=== PATIENT | female | born 1960 | race Caucasian/White ===

== ENCOUNTER → 2016-04-20 | Outpatient (CLI) | payer OTHER ==
[~2016-04-20] MED LIST: TEMA30CA4 PO; TRAM-10 PO; ZYRUNK
== END | disposition home or self-care (01) ==
LOC: C.PAPS 10:06
PROVIDERS: ATTEND Obstetrics & Gynecology
DX: Z12.4 Encounter for screening for malignant neoplasm of cervix (principal)

== ENCOUNTER → 2016-08-09 | Outpatient (CLI) | payer OTHER | END | disposition home or self-care (01) | LOC: C.MAMM 11:33 | PROVIDERS: ATTEND Family Medicine | DX: M81.0 Age-related osteoporosis without current pathological fracture (principal) ==

== ENCOUNTER → 2016-08-24 | Outpatient (CLI) | payer OTHER ==
--- NOTE | 2016-08-24 14:10 | MAMMOGRAPHY REPORT ---
BILATERAL DIGITAL SCREENING MAMMOGRAM TOMOSYNTHESIS WITH CAD: 08/24/2016 CLINICAL HISTORY: Routine screening. Patient has no complaints. TECHNIQUE: Breast tomosynthesis in addition to standard 2D mammography was performed. Current study was also evaluated with a Computer Aided Detection (CAD) system. COMPARISON: Comparison is made to exams dated: 08/19/2015 mammogram, 02/18/2014 mammogram, 12/11/2012 mammogram, 11/23/2011 mammogram, 09/09/2010 mammogram - [facility], and 04/10/2006. BREAST COMPOSITION: The tissue of both breasts is heterogeneously dense, which may obscure small ma sses. FINDINGS: A 4.5 m circumscribed oval mass in the far superior right breast on the MLO view is unchan ged in size dating back to at least 09/09/2010, therefore likely benign. No new suspicious mass, ar chitectural distortion or cluster of microcalcifications is seen. IMPRESSION: ACR BI-RADS CATEGORY 1: NEGATIVE There is no mammographic evidence of malignancy. A 1 year screening mammogram is recommended. The p atient will receive written notification of the results. Approximately 10% of breast cancers are not detected with mammography. A negative mammographic repor t should not delay biopsy if a clinically suggestive mass is present. Graciela Stroud M.D. ay/:08/24/2016 12:17:56 Development Technical Lead: Liliana PLUNKETT)(Malcolm), [facility] letter sent: Normal 1/2 BI-RADS Code: ACR BI-RADS Category 1: Negative
== END | disposition home or self-care (01) ==
LOC: C.MAMM 10:26
PROVIDERS: ATTEND Nurse Practitioner Adult Health
DX: Z12.31 Encounter for screening mammogram for malignant neoplasm of breast (principal)

== ENCOUNTER → 2016-08-26 | Outpatient (CLI) | payer OTHER ==
--- NOTE | 2016-08-26 11:23 | DIAGNOSTIC IMAGING REPORT ---
ABDOMINAL WALL ULTRASOUND CLINICAL HISTORY: Left lower quadrant abdominal mass. COMPARISON STUDY: No previous studies for comparison. FINDINGS: Targeted sonography of the left anterior abdominal wall at site of palpable abnormality revealed a possible 0.9 x 0.6 x 0.4 cm subcutaneous abnormality. This is slightly echogenic when compared to the adjacent subcutaneous fat. IMPRESSION: 9 mm subtle subcutaneous echogenic lesion within the subcutaneous tissues at site of palpable abnormality. The sonographic appearance is nonspecific although this may reflect a lipoma. Clinical follow up to ensure stability is recommended. If interval enlargement, repeat ultrasound is recommended. Electronically signed by: Robinson Mon M.D. 08/26/2016 11:22 AM Dictated Date/Time: 08/26/2016 11:20 AM
== END | disposition home or self-care (01) ==
LOC: C.ULTR 10:46
PROVIDERS: ATTEND Nurse Practitioner Adult Health
DX: R19.04 Left lower quadrant abdominal swelling, mass and lump (principal)

== ENCOUNTER → 2016-10-11 | Outpatient (CLI) | payer OTHER ==
[2016-10-11 13:58] LABS: CALCIUM 10.2 mg/dl (8.5-10.1); CREATININE 0.76 mg/dl (0.60-1.20)
[2016-10-11 15:22] LABS: CALCIUM URINE 6.1 mg/dl
[2016-10-14 11:34] LABS: ALBUMIN 4.6 G/DL (3.8-4.8); GAMMA GLOBULIN 0.9 G/DL (0.8-1.7); TOTAL PROTEIN 7.1 G/DL (6.2-8.3)
== END | disposition home or self-care (01) ==
LOC: C.LAB1850 12:24
PROVIDERS: ATTEND Internal Medicine Rheumatology
DX: M81.0 Age-related osteoporosis without current pathological fracture (principal); E55.9 Vitamin D deficiency, unspecified; Z11.59 Encounter for screening for other viral diseases

== ENCOUNTER → 2016-12-09 | Outpatient (CLI) | payer OTHER ==
[2016-12-09 10:10] LABS: HEMATOCRIT 41.3 % (37-47); MEAN CELL VOLUME 94.9 fL (80-100); MEAN CORPUSCULAR HEMOGLOBIN 30.1 pg (25-34); MEAN CORPUSCULAR HGB CONC 31.7 g/dl (32-36); MEAN PLATELET VOLUME 11.1 fL (7.4-10.4); PLATELET COUNT 282 K/uL (130-400); RED BLOOD COUNT 4.35 M/uL (4.2-5.4); WHITE BLOOD COUNT 5.28 K/uL (4.8-10.8)
[2016-12-09 10:42] LABS: BLOOD UREA NITROGEN 10 mg/dl (7-18); BUN/CREATININE RATIO 12.9 (10-20); CALCIUM 9.7 mg/dl (8.5-10.1); CARBON DIOXIDE 29 mmol/L (21-32); CHLORIDE 105 mmol/L (98-107); CREATININE 0.81 mg/dl (0.60-1.20); GLUCOSE 92 mg/dl (70-99); POTASSIUM 3.8 mmol/L (3.5-5.1); SODIUM 139 mmol/L (136-145)
[2016-12-09 10:46] LABS: CHOLESTEROL 201 mg/dl (0-200); CHOLESTEROL/HDL RATIO 1.9; HDL CHOLESTEROL 105 mg/dl; LDL CHOLESTEROL CALCULATED 86 mg/dl; TRIGLYCERIDES 52 mg/dl (0-150); VERY LOW DENSITY LIPOPROT CALC 10 mg/dl
[2016-12-09 14:19] LABS: URINE APPEARANCE CLEAR (CLEAR); URINE BILIRUBIN NEG (NEG); URINE COLOR YELLOW; URINE NITRITE NEG (NEG); URINE PH 5.5 (4.5-7.5); URINE SPECIFIC GRAVITY 1.016 (1.000-1.030); UROBILINOGEN NEG (NEG)
[2016-12-09 14:22] LABS: MANUAL MICROSCOPIC REQUIRED? NO; REVIEW REQ? NO
== END | disposition home or self-care (01) ==
LOC: C.LAB1850 09:21
PROVIDERS: ATTEND Family Medicine
DX: Z00.00 Encounter for general adult medical examination without abnormal findings (principal); R39.9 Unspecified symptoms and signs involving the genitourinary system; M81.0 Age-related osteoporosis without current pathological fracture; E55.9 Vitamin D deficiency, unspecified; Z13.220 Encounter for screening for lipoid disorders; M79.673 Pain in unspecified foot

== ENCOUNTER → 2016-12-19 | Outpatient (CLI) | payer OTHER ==
--- NOTE | 2016-12-19 16:31 | DIAGNOSTIC IMAGING REPORT ---
ABDOMEN FOR HERNIA CLINICAL HISTORY: R19.04 Left lower quadrant abdominal or pelvic swelling, mass, o pain. Hernia. TECHNIQUE: Ultrasound COMPARISON STUDY: 08/26/2016 FINDINGS: Unchanging lipoma the subcutaneous tissues at the site of clinically palpable nodularity. This is unchanged compared to the prior study. IMPRESSION: Unchanging lipoma subcutaneous tissues left lower abdominal regions The above report was generated using voice recognition software. It may contain grammatical, syntax or spelling errors. Electronically signed by: Rivera Tolliver M.D. 12/19/2016 4:29 PM Dictated Date/Time: 12/19/2016 4:26 PM
== END | disposition home or self-care (01) ==
LOC: C.ULTR 15:34
PROVIDERS: ATTEND Nurse Practitioner Adult Health
DX: R19.04 Left lower quadrant abdominal swelling, mass and lump (principal)

== ENCOUNTER → 2017-07-22 | Outpatient (CLI) | payer OTHER ==
[~2017-07-22] MED LIST changes: +ALPR0.25 PO; +AMOX875T PO; +CALC500C3 PO; +CHOL1TAB42 PO; +CYCL5TAB PO; +GABA-113 PO; +GABA100C13 PO; +MISCCAP52 PO; +MISCCAP80 PO; +TERI600S SQ; +VALA1TAB31 PO; +ZINC1TAB PO
[2017-07-22 13:12] LABS: BASO % 0.6 %; BASO ABS # 0.03 K/uL (0-0.2); EOS % 0.6 %; EOS ABS # 0.03 K/uL (0-0.5); HEMATOCRIT 42.5 % (37-47); HEMOGLOBIN 14.3 g/dL (12.0-16.0); IG# 0.01 K/uL (0.00-0.02); LYMPH ABS # 1.55 K/uL (1.2-3.4); MEAN CORPUSCULAR HEMOGLOBIN 31.6 pg (25-34); MEAN CORPUSCULAR HGB CONC 33.6 g/dl (32-36); MONO ABS # 0.65 K/uL (0.11-0.59); NEUT % 54.6 %; NEUT ABS # 2.73 K/uL (1.4-6.5); PLATELET COUNT 307 K/uL (130-400); RED CELL DISTRIBUTION WIDTH CV 15.7 % (11.5-14.5); RED CELL DISTRIBUTION WIDTH SD 54.2 fL (36.4-46.3)
[2017-07-22 13:32] LABS: ALBUMIN 4.6 gm/dl (3.4-5.0); ALT/SGPT 31 U/L (12-78); AST/SGOT 21 U/L (15-37); BLOOD UREA NITROGEN 14 mg/dl (7-18); CALCIUM 10.1 mg/dl (8.5-10.1); CARBON DIOXIDE 27 mmol/L (21-32); CREATININE 0.85 mg/dl (0.60-1.20); GLUCOSE 86 mg/dl (70-99); POTASSIUM 3.7 mmol/L (3.5-5.1); SODIUM 138 mmol/L (136-145)
[2017-07-22 13:35] LABS: ALKALINE PHOSPHATASE 104 U/L (45-117); TOTAL PROTEIN 8.8 gm/dl (6.4-8.2)
== END | disposition home or self-care (01) ==
LOC: C.LAB1850 12:19
PROVIDERS: ATTEND Internal Medicine
DX: M54.2 Cervicalgia (principal); R51 Headache

== ENCOUNTER 2017-07-25 17:17 | Emergency (ER) | payer OTHER ==
[~2017-07-25] VITALS: Ht 172.7 cm; Wt 49.0 kg
[~2017-07-25 17:17] MED LIST changes: -ALPR0.25 PO; -AMOX875T PO; -CALC500C3 PO; -CHOL1TAB42 PO; -CYCL5TAB PO; -GABA-113 PO; -GABA100C13 PO; -MISCCAP52 PO; -MISCCAP80 PO; -TEMA30CA4 PO; -TERI600S SQ; -VALA1TAB31 PO; -ZINC1TAB PO
[2017-07-25 17:23] VITALS: TEMP 36.9; Ht 172.7 cm; Wt 49.0 kg
--- NOTE | 2017-07-25 18:18 | EMERGENCY ROOM VISIT NOTE ---
History Report prepared by Bimal: Miguel Pimentel Under the Supervision of: Dr. Lisha Jones D.O. First contact with patient: 17:46 Chief Complaint: HEADACHE Stated Complaint: HEADACHE, NECK PAIN History of Present Illness The patient is a 57 year old female who presents to the Emergency Room with complaints of a worsening headache starting a week ago. The patient additionally notes that she has some neck pain, and she states that her headache is worse with light. She additionally notes that she has had headaches before, though she notes that this is worse than usual. The patient notes that she has a history of Lyme's disease in the past, and she notes that her headache feels very similar to when she had it with encephalitis. She states that [place] day, and she states that she has found ticks on her clothes before, though she has not found any tick bites. The patient notes that she went to the walk in clinic three days ago, and she was diagnosed with an ear infection, and she was put on Augmentin. She states that she never had ear pain, though it felt like she had water in her ear. The patient notes that she recently went to [place]. She notes that the only thing that would make it better was Advil. She denies any fever, chills, dizziness, light headedness, nausea, vomiting, vision problems, joint swelling, and joint pain. The patient states that she does not have a history of any sort of headache or migraines, and she denies any family history of headaches and migraines. The patient denies any new medications, and she has been taking Forteo for the past 6-8 months. She notes that she has had CT scans and MRIs in the past. Pt states she has never had IV dye but tells people she is allergic bc her mother had an allergic reaction once. Labs reviewed from outpatient showed a normal CBC, normal CMP, normal CRP and ESR, negative Lyme IgG and IgM. Source of History: patient Onset: a week ago Position: head Quality: ache Timing: worsening Modifying Factors (Worsening): other (light) Associated Symptoms: No fevers, No chills, No nausea, No vomiting Review of Systems See HPI for pertinent positives & negatives. A total of 10 systems reviewed and were otherwise negative. Past Medical & Surgical Medical Problems: (1) H/o Lyme disease Family History FHx: cancer Hypertension Social History Smoking Status: Never Smoker Marital Status: Occupation Status: employed Current/Historical Medications Scheduled Amoxicillin & Pot Clavulanate (Augmentin 875-125 mg), 1 TAB PO Q12 Calcium Carbonate (Tums), 1 TAB PO DAILY Cholecalciferol (Vitamin D), 5,000 UNITS PO DAILY Cyclobenzaprine Hcl (Flexeril), 5 MG PO TID Gabapentin (Neurontin), 600 MG PO HS Gabapentin (Neurontin), 100 MG PO BID UD Misc Natural Products (Turmeric Curcumin), 1 CAN PO DAILY Probiotic Product (Probiotic), 1 CAP PO DAILY Temazepam (Restoril), 30 MG PO HS Teriparatide (Recombinant) (Forteo), 1 DOSE SQ DAILY Zinc Gluconate (Zinc), 1 TABS PO DAILY Scheduled PRN Alprazolam (Xanax), 0.25 MG PO QID PRN for Anxiety Valacyclovir Hcl (Valtrex), 1 GM PO TID PRN for BREAKOUTS Allergies Coded Allergies: Iodinated Diagnostic Agents (Verified Allergy, Mild, UNKNOWN, 07/25/17) Sulfa Antibiotics (Verified Allergy, Unknown, ., 08/08/13) Levofloxacin (Verified Adverse Reaction, Severe, AGGITATION/NUMB FEET & HANDS,TACHYCARDIA, 07/25/17) Physical Exam Vital Signs Date Time Temp Pulse Resp B/P (MAP) Pulse Ox O2 Delivery O2 Flow Rate FiO2 07/25/17 21:22 52 16 105/72 98 07/25/17 20:34 55 16 111/66 98 Room Air 07/25/17 18:40 62 20 113/76 97 Room Air 07/25/17 17:23 36.9 70 20 118/73 97 Room Air Physical Exam GENERAL: alert, well appearing, well nourished, no distress, non-toxic EYE EXAM: normal conjunctiva, PERRL and EOM's grossly intact OROPHARYNX: no exudate, no erythema, lips, buccal mucosa, and tongue normal and mucous membranes are moist NECK: supple, no nuchal rigidity, no adenopathy, non-tender LUNGS: Clear to auscultation. Normal chest wall mechanics HEART: no murmurs, S1 normal and S2 normal ABDOMEN: abdomen soft, non-tender, normo-active bowel sounds, no masses, no rebound or guarding. BACK: Back is symmetrical on inspection and there is no deformity, no midline tenderness, no CVA tenderness. SKIN: no rashes and no bruising UPPER EXTREMITIES: upper extremities are grossly normal. LOWER EXTREMITIES: No pitting edema. NEURO EXAM: Normal sensorium, cranial nerves II-XII grossly intact, normal speech, no gross weakness of arms, no gross weakness of legs. Medical Decision & Procedures ER Provider Diagnostic Interpretation: Radiology results have been interpreted by the radiologist and reviewed by me. ANGIOGRAPHY HEAD COMBO CLINICAL HISTORY: 57 years-old Female presents with acute headache COMPARISON STUDY: None available TECHNIQUE: Unenhanced axial CT scan of the brain is performed. Subsequently, following the IV administration of 95 cc of Optiray 320, CT angiogram of the brain was performed from the skull base to the vertex. Images are reviewed in the axial, sagittal, and coronal planes. 3-D MIPS images are created and assessed. IV contrast was administered without complication. All measurements were obtained according to NASCET criteria. A dose lowering technique was utilized adhering to the principles of ALARA. CT DOSE: 632.84 mGy.cm FINDINGS: CT BRAIN: There is no acute intracranial hemorrhage, midline shift, hydrocephalus, intracranial mass, territorial ischemia or abnormal extra-axial collections. No abnormal intra-axial or extra-axial enhancement. Mastoid air cells and middle ear cavities are clear. No calvarial fracture. Minimal aerated secretions of the sphenoid sinus. Minimal left maxillary sinus disease.. CT ANGIOGRAM OF THE BRAIN: The imaged bilateral internal carotid arteries are patent. The bilateral anterior and middle cerebral arteries are also patent. The vertebrobasilar system and posterior cerebral arteries are widely patent. Right vertebral artery is dominant. The majority of the left vertebral artery terminates into the left PICA. There is no aneurysm, high-grade stenosis, or proximal branch occlusion identified. Dural sinuses are not well opacified. IMPRESSION: 1. No acute intracranial abnormality identified. 2. Unremarkable CTA of the head without aneurysm, dissection, high-grade stenosis or proximal branch occlusion. The above report was generated using voice recognition software. It may contain grammatical, syntax or spelling errors. Electronically signed by: Man Cohen M.D. 07/25/2017 8:24 PM Dictated Date/Time: 07/25/2017 8:17 PM Medications Administered Medications (Trade) Dose Ordered Sig/Don Route Start Time Stop Time Status Last Admin Dose Admin Diphenhydramine HCl (Benadryl Inj) 25 mg NOW STAT IV 07/25/17 19:34 07/25/17 19:36 DC 07/25/17 19:45 25 MG Methylprednisolone Sodium Succinate (Solu-Medrol IV) 40 mg STK-MED ONCE .ROUTE 07/25/17 19:42 07/25/17 19:43 DC 07/25/17 19:46 40 MG Acetaminophen (Tylenol Tab) 1,000 mg NOW STAT PO 07/25/17 20:43 07/25/17 20:44 DC 07/25/17 20:47 1,000 MG Cyclobenzaprine HCl (Flexeril Tab) 5 mg NOW STAT PO 07/25/17 20:57 07/25/17 20:58 DC 07/25/17 20:57 5 MG ED Course 1745: The patient was evaluated in room A4. A complete history and physical exam was performed. 1804: Review of EMR showed labs from three days ago: CBC, [employer]CH[employer]ICIAN, [employer]ER, CRP, and Lyme disease are all negative 1807: I reevaluated the patient, and she wants to talk to the case specialist before getting any imaging. 2049: Upon reevaluation, the patient is feeling better. I discussed the findings and the treatment plan with the patient and answered all of her questions. She verbalizes agreement and understanding. She was discharged home. Medical Decision Differential diagnosis: Etiologies such as migraine headache, meningitis, sinusitis, CO exposure, ICH, SAH, infection, tumor, headache, sinus thrombosis, arterial dissection, as well as others were entertained. Discussed with patient close follow-up with her family doctor and possible recheck of her Lyme's titer in several weeks and sometimes they can be falsely normal after the initial infection. Patient given additional medications to try upon arrival at home. None given here as patient was driving. Patient with a normal nonfocal neuro exam at bedside. Given chronicity of symptoms, unclear if related to other atypical headaches. I do not suspect occult meningitis/encephalitis. Discussed with her possibility of migraine versus tension headaches. Patient verbalized understanding of all this and was agreeable with plan. I did not feel patient required lumbar puncture to rule out subarachnoid hemorrhage. Patient does not have risk factors for venous sinus thrombus. Patient with no other symptoms to suggest carotid or vertebral dissection, CVA, cerebellar infarct/mass/bleed. Discussed with patient symptoms to watch and return for, she verbalized understanding was agreeable with plan. Medication Reconcilliation Current Medication List: was personally reviewed by me Blood Pressure Screening Patient's blood pressure: Normal blood pressure Impression Primary Impression: Headache Scribe Attestation The scribe's documentation has been prepared under my direction and personally reviewed by me in its entirety. I confirm that the note above accurately reflects all work, treatment, procedures, and medical decision making performed by me. Departure Information Dispostion Home / Self-Care Prescriptions Cyclobenzaprine Hcl (FLEXERIL) 5 Mg Tab 5 MG PO TID for Muscle Spasms, #10 TAB PRN Prov: Lisha Jones DO 07/25/17 Referrals Talia Bronson DO (PCP) Forms HOME CARE DOCUMENTATION FORM, IMPORTANT VISIT INFORMATION Patient Instructions My [facility] Additional Instructions Please call and follow-up with your family doctor. You may use tylenol as needed for pain. You may try to muscle relaxer. Do not take it any drive. It may make you dizzy/groggy. Please do not take it and drink alcohol. If you have any worsening headaches, develop vomiting, dizziness, vision changes, numbness/tingling, weakness, trouble walking, or any other new or concerning symptoms, please return to the emergency room. Problem Qualifiers Primary Impression: Headache Headache type: unspecified Headache chronicity pattern: acute headache Intractability: not intractable Qualified Codes: R51 - Headache
[2017-07-25] MEDS ORDERED: AMOX875T PO (19:07)
[2017-07-25] MEDS ORDERED: CALC500C3 PO (19:07)
[2017-07-25] MEDS ORDERED: CHOL1TAB42 PO (19:12)
[2017-07-25] MEDS ORDERED: TERI600S SQ (19:12)
[2017-07-25] MEDS ORDERED: GABA-113 PO (19:12)
[2017-07-25] MEDS ORDERED: ZINC1TAB PO (19:12)
[2017-07-25] MEDS ORDERED: VALA1TAB31 PO (19:12)
[2017-07-25] MEDS ORDERED: MISCCAP52 PO (19:13)
[2017-07-25] MEDS ORDERED: MISCCAP80 PO (19:13)
[2017-07-25] MEDS ORDERED: GABA100C13 PO (19:15)
[2017-07-25] MEDS ORDERED: ALPR0.25 PO (19:19)
[2017-07-25] MEDS ORDERED: DiphenhydrAMINE HCL 50 MG/ML VIAL IV STA (19:34)
[2017-07-25] MEDS ORDERED: METHYLPREDNISOLONE 125 MG VIAL IV STA (19:34)
[2017-07-25] MEDS ORDERED: OPTIRAY 320 IV PRN (20:15)
--- NOTE | 2017-07-25 20:25 | DIAGNOSTIC IMAGING REPORT ---
ANGIOGRAPHY HEAD COMBO CLINICAL HISTORY: 57 years-old Female presents with acute headache COMPARISON STUDY: None available TECHNIQUE: Unenhanced axial CT scan of the brain is performed. Subsequently, following the IV administration of 95 cc of Optiray 320, CT angiogram of the brain was performed from the skull base to the vertex. Images are reviewed in the axial, sagittal, and coronal planes. 3-D MIPS images are created and assessed. IV contrast was administered without complication. All measurements were obtained according to NASCET criteria. A dose lowering technique was utilized adhering to the principles of ALARA. CT DOSE: 632.84 mGy.cm FINDINGS: CT BRAIN: There is no acute intracranial hemorrhage, midline shift, hydrocephalus, intracranial mass, territorial ischemia or abnormal extra-axial collections. No abnormal intra-axial or extra-axial enhancement. Mastoid air cells and middle ear cavities are clear. No calvarial fracture. Minimal aerated secretions of the sphenoid sinus. Minimal left maxillary sinus disease.. CT ANGIOGRAM OF THE BRAIN: The imaged bilateral internal carotid arteries are patent. The bilateral anterior and middle cerebral arteries are also patent. The vertebrobasilar system and posterior cerebral arteries are widely patent. Right vertebral artery is dominant. The majority of the left vertebral artery terminates into the left PICA. There is no aneurysm, high-grade stenosis, or proximal branch occlusion identified. Dural sinuses are not well opacified. IMPRESSION: 1. No acute intracranial abnormality identified. 2. Unremarkable CTA of the head without aneurysm, dissection, high-grade stenosis or proximal branch occlusion. The above report was generated using voice recognition software. It may contain grammatical, syntax or spelling errors. Electronically signed by: Man Cohen M.D. 07/25/2017 8:24 PM Dictated Date/Time: 07/25/2017 8:17 PM
[2017-07-25] MEDS ORDERED: ACETAMINOPHEN 500 MG TAB PO STA (20:43)
[2017-07-25] MEDS ORDERED: CYCLOBENZAPRINE HCL 10 MG TAB PO STA (20:57)
[2017-07-25] MEDS ORDERED: CYCL5TAB PO (21:08)
[2017-07-25] MEDS ORDERED: EMPTY 8 DRAM VIAL ONE (21:14)
[2017-07-25 21:22] VITALS: BP 105/72; PULSE 52; O2SAT 98
[2017-07-25] MEDS ORDERED: TEMA30CA4 PO (22:15)
== END 2017-07-25 21:24 | disposition home or self-care (01) ==
LOC: C.EDB 17:20 → C.EDA 21:24
DX: R51 Headache (principal); Z82.49 Family history of ischemic heart disease and other diseases of the circulatory system; Z88.1 Allergy status to other antibiotic agents; Z91.041 Radiographic dye allergy status

== ENCOUNTER 2017-07-31 09:07 | Day surgery (SDC) | payer OTHER ==
[~2017-07-31] VITALS: Ht 170.2 cm; Wt 49.0 kg
[2017-07-31] VITALS (9 sets, daily range): BP systolic 96–137; BP diastolic 43–66; PULSE 64–83; TEMP 36.8–37; O2SAT 98–100; Ht 170.2 cm; Wt 49.0 kg
[~2017-07-31 09:07] MED LIST changes: +ALPR0.25 PO; +AMOX875T PO; +CALC500C3 PO; +CHOL1TAB42 PO; +CYCL5TAB PO; +GABA-113 PO; +GABA100C13 PO; +MISCCAP52 PO; +MISCCAP80 PO; +TEMA30CA4 PO; +TERI600S SQ; -TRAM-10 PO; +VALA1TAB31 PO; +ZINC1TAB PO; -ZYRUNK
[2017-07-31] MEDS ORDERED: CYCL5TAB PO (10:34)
--- NOTE | 2017-07-31 12:29 | DIAGNOSTIC IMAGING REPORT ---
FLUOROSCOPICALLY GUIDED LUMBAR PUNCTURE CLINICAL HISTORY: Headache. Change in mental status. FLUOROSCOPY TIME: 0.7 minutes. 4 fluoroscopic spot images of the lumbar spine. PROCEDURE: The procedure, risks and benefits were discussed with the patient including the risk of spinal headache, bleeding and infection. The patient agreed to the procedure and informed written consent was obtained. The procedure was performed by Dr. Thomason following a timeout. The left L4-L5 interlaminar space was targeted. Skin overlying the space was prepped and draped in the usual sterile fashion and local anesthesia was achieved with 1% lidocaine. Under intermittent fluoroscopic guidance, a 20-gauge x 3 1/2 in. Sprotte needle was inserted into the L4-L5 level. However, no cerebral spinal fluid was obtained. This was repeated at the L3-L4 level with the same result. Finally, at the L5-S1 level cerebral spinal fluid was obtained. A total of 11cc of clear, colorless cerebral spinal fluid was obtained and spread amongst 4 vials. The patient tolerated the procedure well. There were no immediate complications. The specimens were sent to the laboratory at the request of the referring physician. IMPRESSION: Successful fluoroscopic guided lumbar puncture with removal of 11 cc of clear, colorless cerebral spinal fluid. No immediate complications. Opening pressure was less than 9 cm of H2O. Electronically signed by: Sami Thomason M.D. 07/31/2017 12:27 PM Dictated Date/Time: 07/31/2017 12:25 PM
[2017-07-31] MEDS ORDERED: ACETAMINOPHEN 500 MG TAB PO PRN (12:30)
--- NOTE | 2017-07-31 12:31 | Discharge Instructions ---
Discharge Instructions Procedure Procedure Date: July 31, 2017. Reason for visit: Change Mental Status, Neck Stiffness, Headache. Discharge Discharge Date: July 31, 2017. Discharge Diagnosis: same Instructions Activity Recommendations: No limitations Return to School/Work: no limitations Recommended Home Diet: Resume Previous Diet Provider Instructions: ACTIVITY RECOMMENDATIONS: * Rest today. * Resume regular activity in one day. MEDICATIONS: * May take Tylenol or Ibuprofen as needed for pain. DIET: * Resume previous diet. SPECIAL CARE INSTRUCTIONS: Call your doctor if: * Temperature above 101 degrees F. * Pain not relieved by pain medicine ordered. * Increased drainage or redness from incision. * Notify your doctor with any questions or concerns. Call your doctor or go to the nearest Emergency Department if you experience: * Increased chest pain or shortness of breath. FOLLOW UP VISIT: Follow-up with Referring Physician as scheduled. Allergies Coded Allergies: Iodinated Diagnostic Agents (Verified Allergy, Mild, UNKNOWN, 07/31/17) Sulfa Antibiotics (Verified Allergy, Unknown, ., 07/31/17) Levofloxacin (Verified Adverse Reaction, Severe, AGGITATION/NUMB FEET & HANDS,TACHYCARDIA, 07/31/17) [place] Recommendations: Call your doctor if: * Temperature above 101 degrees * Pain not relieved by pain medicine ordered * There is increased drainage or redness from any incision * You have any unanswered questions or concerns. Your Doctors Instructions noted above were prepared by provider Sami Thomason. Patient Signature Section: Patient Instructions Signature Page Araceli Marilydolly Patient (or Guardian) Signature/Date: I have read and understand the instructions given to me by my caregivers. Caregiver/RN/Doctor Signature/Date: The above-named patient and/or guardian has received patient instructions on this date. + Original Patient Signature Page (only) stays with chart. Please make copy for patient.
[2017-07-31 12:42] LABS: CSF TOTAL PROTEIN 64.6 mg/dl (15.0-45.0)
== END 2017-07-31 16:17 | disposition home or self-care (01) ==
LOC: C.ACU 09:07
PROVIDERS: ATTEND Internal Medicine
DX: R41.82 Altered mental status, unspecified (principal); R51 Headache; M43.6 Torticollis; M81.0 Age-related osteoporosis without current pathological fracture; Z88.1 Allergy status to other antibiotic agents; Z88.6 Allergy status to analgesic agent; Z91.041 Radiographic dye allergy status

== ENCOUNTER → 2017-08-17 | Outpatient (CLI) | payer OTHER ==
[~2017-08-17] MED LIST changes: +GADAVIST IV PRN
--- NOTE | 2017-08-17 11:15 | DIAGNOSTIC IMAGING REPORT ---
BRAIN COMBO HISTORY: 57 years-old Female R41.82 Mental status [id number] CSF abnormal severe headache with CSF demonstrating elevated protein level COMPARISON: CTA had 07/25/2017 TECHNIQUE: Multiplanar multisequence MRI of the brain was obtained both with and without the use of 4.5 mL Gadavist FINDINGS: Localizer images demonstrate no gross abnormality. The midline structures including the corpus callosum, brainstem, optic chiasm, pituitary and pineal glands appear unremarkable. There is no cerebellar tonsillar herniation. There is no restricted diffusion to suggest acute or subacute infarction. No acute intracranial hemorrhage, midline shift, abnormal extra-axial collections or hydrocephalus. The study is mildly motion degraded. No significant T2/FLAIR signal abnormalities within the brain parenchyma. There is no abnormal intra-axial or extra-axial enhancement. Flow voids at the level of the skull base appear patent. Mastoid air cells and paranasal sinuses appear clear. The orbits, skull and soft tissues are within normal limits. IMPRESSION: 1. No acute intracranial abnormality. 2. No abnormal enhancement. The above report was generated using voice recognition software. It may contain grammatical, syntax or spelling errors. Electronically signed by: Man Cohen M.D. 08/17/2017 11:14 AM Dictated Date/Time: 08/17/2017 11:03 AM
== END ==
LOC: C.MRIBC 10:04
PROVIDERS: ATTEND Internal Medicine
DX: R83.9 Unspecified abnormal finding in cerebrospinal fluid (principal); R51 Headache; R41.82 Altered mental status, unspecified

== ENCOUNTER → 2017-11-02 | Outpatient (CLI) | payer OTHER ==
[~2017-11-02] MED LIST changes: +GABA-1693 PO; -GABA100C13 PO; -GADAVIST IV PRN
[2017-11-02 12:36] LABS: CREATININE 0.81 mg/dl (0.60-1.20)
== END | disposition home or self-care (01) ==
LOC: C.LAB1850 10:51
PROVIDERS: ATTEND Internal Medicine Rheumatology
DX: M81.0 Age-related osteoporosis without current pathological fracture (principal); E55.9 Vitamin D deficiency, unspecified

== ENCOUNTER 2024-10-29 19:13 | Inpatient (IN) ==
[2024-10-29 20:06] LABS: Anion Gap 9.0 (3-11); Blood Urea Nitrogen 19.0 mg/dl (6-23); Calcium 9.6 mg/dl (8.6-10.3); Carbon Dioxide 26.0 mmol/L (21-32); Chloride 101.0 mmol/L (98-107); Creatinine Clr Calc Pharmacy 45.4 ml/min; Glucose 96.0 mg/dl (70-99(Fasting)); Hematocrit (blood only) 37.5 % (37.0-47.0); Hemoglobin 12.6 g/dl (12.0-16.0); Immature Granulocytes # (auto) 0.03 K/uL (0.01-0.20); Immature Granulocytes % (auto) 0.3 %; Mean Corpuscular Hemoglobin 30.9 pg (25.0-34.0); Mean Corpuscular Volume 91.9 fL (80.0-100.0); Platelet Count 299 K/uL (130-400); Potassium 3.2 mmol/L (3.5-5.1); RDW Standard Deviation 47.4 fL (36.4-46.3); Red Blood Count 4.08 M/uL (4.20-5.40); Sodium 136.0 mmol/L (136-145); White Blood Count 9.89 K/ul (4.8-10.8)
--- NOTE | 2024-10-29 20:39 | OB/GYN Consultation ---
Date of Consultation October 29, 2024 Assessment & Plan (1) Postoperative hemorrhage of vagina following genitourinary procedure: I saw the patient in the emergency department, speculum exam performed. Initial exam resulted in expelling of clots and active bleeding. Thorough evaluation of the bed of the LEEP revealed no active bleeding. The speculum was removed, and patient was monitored for approximately 10 more minutes, and reexamined. On reexam, more large clots protruding from vagina. Repeat exam showed no active bleeding while speculum was in place. Suspected possible temporary tamponade of bleeding while we were performing exam, therefore attempted placement of Floseal to the entire cervix. Speculum was removed again, and another 10 minutes for evaluation. Speculum was replaced, and more clots. This was suctioned from the vagina again, and no obvious active bleeding. At this point, I suspected may be there was bleeding elsewhere in the vagina, and did see active bleeding in the right vaginal wall at a small laceration. Silver nitrate sticks were applied to this active bleeding site, this significantly improved. A Silva catheter was placed, and packing with 1 single lap pad soaked in TXA was placed in the vagina to further reapproximate the tamponade of bleeding. The patient was given 1 g of TXA IV. I recommended admission overnight to further monitor her bleeding. Will plan to recheck CBC upon admission to the floor, and again in the morning. She is agreeable with the plan. History of Present Illness Reason for Consultation: vaginal bleeding Requesting Physician: Estrellita Stevenson History of Present Illness 64yo who underwent LEEP in office today, presented to ER via ambulance for heavy vaginal bleeding. She did not have any bleeding immediately after the procedure, but then was sitting on the couch this evening and started to bleed and pass large clots. Called ambulance, continued to bleed upon arrival to ER. Allergies Allergy/AdvReac Type Severity Reaction Status Date / Time Sulfa (Sulfonamide Allergy Mild Nausea Verified 10/29/24 10:01 Antibiotics) ciprofloxacin [From Cipro] Allergy Verified 10/29/24 10:01 Iodinated Contrast Media Allergy Verified 10/29/24 10:01 metronidazole [From Flagyl] Allergy Verified 10/29/24 10:01 NSAIDS (Non-Steroidal Allergy Verified 10/29/24 10:01 Anti-Inflamma levofloxacin AdvReac Severe AGGITATION/NUMB Verified 10/29/24 10:01 FEET & HANDS,TACHYCARDIA Home Medications Medication Instructions Recorded Confirmed Type valacyclovir 1 gram tablet 2,000 mg PO AMHS PRN Cold Sores 06/04/18 10/29/24 History melatonin 10 mg tablet 10 mg PO HS 05/16/24 10/29/24 History lorazepam 0.5 mg tablet 0.5 - 1 mg PO UD PRN before imaging 10/29/24 10/29/24 History ropinirole 0.5 mg tablet 1.5 mg PO HS 10/29/24 10/29/24 History tramadol 50 mg tablet 50 mg PO Q8H PRN Pain 10/29/24 10/29/24 History Patient History Medical History (Updated 10/29/24 @ 21:30 by Suleman Stevenson) Family history of melanoma Chronic pain of left heel Fibromyalgia History of Lyme disease Anxiety Surgical History (Updated 04/05/21 @ 14:27 by Heather Chahal) History of hand surgery Left thumb for osteoarthritis History of laparotomy tubal History of root canal procedure History of colonoscopy History of esophagogastroduodenoscopy (EGD) History of wisdom tooth extraction Family History (System 09/05/19 @ 15:51 by Aydee Li) Mother Bladder cancer Lung disease Melanoma Father Asthma Stroke Other No family history of adverse response to anesthesia Denies family history of Ovarian cancer Prostate cancer Myocardial infarction Breast cancer Colorectal cancer Social History (Updated 12/25/20 @ 16:07 by Genesis Mahmood LPN) Smoking Status: Never smoker Second Hand Exposure: Yes (father smoked); Do You Dip or Chew Tobacco: No; Hx Alcohol Use: Yes Alcohol type: beer and wine Hx Substance Use: No Preferred Language: German Communication Ability: Effective Steamfitter Required: No Beliefs That Will Affect Care: None Current Living Situation: Alone Feels Safe at Home: Yes Assistive Devices: Glasses Physical Exam Physical Exam: Awake, alert, oriented Spec exam showed large clots and bright red vaginal bleeding Results & Data Vital Signs (Past 12 Hours) Vital Signs Pulse Pulse Resp BP BP Pulse Ox O2 Del Method 10/29/24 19:25 82 10/29/24 19:07 79 22 149/75 H 98 Room Air 10/29/24 19:07 78 14 149/75 H 98 Room Air PG Care Time/CCT Total # of Minutes Spent Total Time Spent with Patient: Total time spent is greater than 50% in coordination of care (as documented) at patient's floor/unit and/or counseling patient: Coding Level of Care Code 26103 OFFICE CONSULT LVL Diagnoses Postoperative hemorrhage of vagina following genitourinary procedure N99.820
--- NOTE | 2024-10-29 20:41 | Emergency Department Note ---
Impression & Plan Postoperative hemorrhage of vagina following genitourinary procedure ED Provider Note CHIEF COMPLAINT: Heavy vaginal bleeding x 45 minutes after LEEP procedure today HISTORY OF PRESENT ILLNESS: Patient is a 64-year-old female who presents to the emergency department accompanied by friends for evaluation after she developed heavy vaginal bleeding within the last 45-60 minutes. Patient had a LEEP procedure performed by Dr. Castellon earlier today. Per the note, there was some bleeding from infiltration of local anesthetic, but it was able to be controlled in the office. Patient had pain with the procedure but otherwise tolerated it well. She was fine throughout the day. She did take her dog for a walk, but otherwise rested at home. About an hour ago, she was laying on the couch, talking on the phone, when she began to feel a gush of bleeding. She ran to the bathroom and had a large gush of bright red blood with clots. A friend brought over several pads which she saturated through within about 30 minutes and she is continued to have heavy bleeding with clots and she is soiling her clothes and a towel. She currently denies any pain but did take a tramadol prior to arrival because she was concerned about pain from examination. She denies any lightheadedness or dizziness. She does not take any blood thinning medications. She does not have a history of bleeding issues per se, she did have some heavy bleeding after a vaginal polypectomy many years ago, but no issues with vaginal delivery. REVIEW OF SYSTEMS: Review of systems as per HPI. All other systems reviewed were negative. 10 systems reviewed. PMH: External medical records are reviewed and summarized as above/below. See Problem List. SOCIAL HISTORY: Patient lives at home. PHYSICAL EXAM: Vital Signs: Reviewed Nurse's notes. CONSTITUTIONAL: Patient is a mildly anxious but otherwise well-appearing 64-year-old female who is awake and alert and in no acute distress laying on the gurney. EYES: Pupils equal, round, reactive to light and accommodation. EOMs intact without nystagmus. Sclera are anicteric. ENT: Tympanic membranes intact, with normal landmarks. External canals are clear. Oral and nasopharynx are clear. Mucous membranes are moist, no lesions, tongue and gums appear normal. CARDIOVASCULAR: Regular rate and rhythm. Peripheral pulses easily palpable. RESPIRATORY: Breath sounds equal and clear to auscultation ABDOMEN: Bowel sounds are present. The abdomen is soft, scaphoid, nontender and nondistended. . INTEGUMENTARY: No lesions or rash, normal skin turgor. LYMPH: No lymphadenopathy. EMERGENCY DEPARTMENT COURSE: The patient was seen and assessed as above. External medical records are reviewed, and the including her gynecologic note from earlier today. She presents to the emergency department for evaluation of heavy vaginal bleeding after a LEEP procedure earlier today. I was preparing to perform a pelvic examination on this patient, when Dr. Orr, who was on-call for [facility] gynecology, called to the emergency department from L&D, and was available to assess the patient. She presented to the emergency department and kindly evaluated and cared for the patient. Please refer to her gynecologic note for further information. In short, after extensive evaluation and observation, the patient did have bleeding from what was likely the site on the lateral left right vaginal wall from infiltration of local anesthetic. Floseal was ineffective, and ultimately, site was cauterized with silver nitrate, and vaginal packing was placed by Dr. Orr. While in the ED, IV lock was initiated and laboratory studies collected including CBC with differential, BNP, type and screen. She received 1 g of TXA IV. She was given Ativan 1 mg IV, morphine 4 mg IV and Zofran 4 mg IV to help assist with gynecologic evaluation and vaginal procedures. The patient did remain hemodynamically stable while in the emergency department. Dr. Orr did advise overnight observation, and the patient was agreeable. Diagnostics, according to my interpretation: Laboratory studies: H&H 12.6 and 37.5, platelet count 299,000. No electrolyte imbalance requiring correction. Renal functions are normal. Blood type is O+. Cardiac monitoring: An order was placed for continuous cardiac monitoring. The monitor shows a NSR at a rate of 65 per my interpretation. Differential diagnosis: Post procedural bleeding, anemia, coagulopathy, vaginal laceration/tear, trauma, infection, as well as others were entertained. Past Med/Surg History Problem List Postoperative hemorrhage of vagina following genitourinary procedure (Acute) Abnormal laboratory test result ASCUS with positive high risk HPV cervical Encounter for annual routine gynecological examination History of dysplastic nevus (Acute) Vitamin D deficiency (Acute) Lumbar back pain H/o Lyme disease Medical History Osteoporosis Family history of melanoma Chronic pain of left heel Fibromyalgia History of Lyme disease Anxiety Surgical History History of hand surgery Left thumb for osteoarthritis History of laparotomy tubal History of root canal procedure History of colonoscopy History of esophagogastroduodenoscopy (EGD) History of wisdom tooth extraction Family History (System 09/05/19 @ 15:51 by Aydee Li) Mother Bladder cancer Lung disease Melanoma Father Asthma Stroke Other No family history of adverse response to anesthesia Denies family history of Ovarian cancer Prostate cancer Myocardial infarction Breast cancer Colorectal cancer Social History Smoking Status: Never smoker Second Hand Exposure: Yes (father smoked); Do You Dip or Chew Tobacco: No; Hx Alcohol Use: Yes Alcohol type: beer and wine Hx Substance Use: No Preferred Language: Swedish Communication Ability: Effective Construction Equipment Operator Required: No Beliefs That Will Affect Care: None Current Living Situation: Alone Feels Safe at Home: Yes Assistive Devices: Glasses Allergies Allergies Allergy/AdvReac Type Severity Reaction Status Date / Time Sulfa (Sulfonamide Allergy Mild Nausea Verified 10/29/24 10:01 Antibiotics) ciprofloxacin [From Cipro] Allergy Verified 10/29/24 10:01 Iodinated Contrast Media Allergy Verified 10/29/24 10:01 metronidazole [From Flagyl] Allergy Verified 10/29/24 10:01 NSAIDS (Non-Steroidal Allergy Verified 10/29/24 10:01 Anti-Inflamma levofloxacin AdvReac Severe AGGITATION/NUMB Verified 10/29/24 10:01 FEET & HANDS,TACHYCARDIA Home Meds Home Medications Medication Instructions Recorded Confirmed valacyclovir 1 gram tablet 2,000 mg PO AMHS PRN Cold Sores 06/04/18 10/29/24 melatonin 10 mg tablet 10 mg PO HS 05/16/24 10/29/24 lorazepam 0.5 mg tablet 0.5 - 1 mg PO UD PRN before imaging 10/29/24 10/29/24 ropinirole 0.5 mg tablet 1.5 mg PO HS 10/29/24 10/29/24 tramadol 50 mg tablet 50 mg PO Q8H PRN Pain 10/29/24 10/29/24 Results & Data (ED) Vital Signs Vital Signs - 24 hr 10/29/24 19:07 10/29/24 19:07 10/29/24 19:25 Pulse Rate 78 82 Pulse Rate [Right Finger] 79 Pulse Rhythm Regular Pulse Rhythm [Right Finger] Pulse Strength Normal Pulse Strength [Right Finger] Respiratory Rate 14 22 Respiratory Effort / Characteristics Non-Labored Spontaneous Non-Labored Spontaneous Respiratory Depth Normal Normal Respiratory Pattern Regular Regular Blood Pressure 149/75 H Blood Pressure [Right Arm] 149/75 H Blood Pressure Mean 99 Blood Pressure Mean [Right Arm] 99 Blood Pressure Position Lying Blood Pressure Position [Right Arm] Lying Pulse Oximetry 98 98 Oxygen Delivery Method Room Air Room Air Sepsis Recent Fever Within 48 Hours No Sepsis New/Unexplained Change in Mental Status No Sepsis Action Taken by Nursing No Action Required 10/29/24 21:07 10/29/24 22:24 Pulse Rate Pulse Rate [Right Finger] 69 65 Pulse Rhythm Pulse Rhythm [Right Finger] Regular Regular Pulse Strength Pulse Strength [Right Finger] Normal Normal Respiratory Rate 18 16 Respiratory Effort / Characteristics Non-Labored Spontaneous Non-Labored Spontaneous Respiratory Depth Normal Normal Respiratory Pattern Regular Regular Blood Pressure Blood Pressure [Right Arm] 112/65 102/65 Blood Pressure Mean Blood Pressure Mean [Right Arm] 80 77 Blood Pressure Position Blood Pressure Position [Right Arm] Lying Lying Pulse Oximetry 98 98 Oxygen Delivery Method Room Air Sepsis Recent Fever Within 48 Hours Sepsis New/Unexplained Change in Mental Status Sepsis Action Taken by Correction Medications Current Medication List: was personally reviewed by me Laboratory Data Attestation: I reviewed the patient's lab results. 10/29/24 Unknown 10/29/24 Unknown Lab Results 10/29/24 10/29/24 10/29/24 Range/Units 19:32 19:42 Unknown WBC 9.89 (4.8-10.8) K/ul RBC 4.08 L (4.20-5.40) M/uL Hgb 12.6 (12.0-16.0) g/dl POC Hgb 12.6 (12.0-16.0) g/dl Hct 37.5 (37.0-47.0) % POC Hct 37 (37-47) % MCV 91.9 (80.0-100.0) fL MCH 30.9 (25.0-34.0) pg MCHC 33.6 (32.0-36.0) g/dL RDW Std Deviation 47.4 H (36.4-46.3) fL RDW Coeff of Maryjo 14.0 (11.5-14.5) % Plt Count 299 (130-400) K/uL MPV 10.8 (9.4-12.4) fL Immature Gran % (Auto) 0.3 % Neut % (Auto) 46.5 % Lymph % (Auto) 44.9 % Alpine % (Auto) 7.6 % Eos % (Auto) 0.4 % Baso % (Auto) 0.3 % Neut # (Auto) 4.60 (1.40-6.50) K/uL Lymph # (Auto) 4.44 H (1.20-3.40) K/uL Alpine # (Auto) 0.75 H (0.11-0.59) K/uL Eos # (Auto) 0.04 (0.00-0.50) K/uL Baso # (Auto) 0.03 (0.00-0.20) K/uL Immature Gran # (Auto) 0.03 (0.01-0.20) K/uL POC Sodium 136 (135-144) mmol/L Sodium 136 (136-145) mmol/L POC Potassium 3.3 (3.3-5.0) mmol/L Potassium 3.2 L (3.5-5.1) mmol/L POC Chloride 101 (101-112) mmol/L Chloride 101 (98-107) mmol/L Carbon Dioxide 26 (21-32) mmol/L POC Total CO2 24 (24-31) mmol/L Anion Gap 9 (3-11) POC Anion Gap 15.0 L (16-25) mmol/L POC BUN 19 H (7-18) mg/dl BUN 19 (6-23) mg/dl Creatinine 0.98 (0.6-1.2) mg/dl POC Creatinine 1.6 H (0.6-1.3) mg/dl Est Cr Clr Drug Dosing 45.4 ml/min eGFR 63.66 BUN/Creatinine Ratio 19.4 (10-20) Glucose 96 (70-99(Fasting)) mg/dl POC Glucose (other) 93 (70-99) mg/dl Calcium 9.6 (8.6-10.3) mg/dl POC Ioniz Calcium Sean 1.20 (1.12-1.32) mmol/l Blood Type O Positive Antibody Screen NEGATIVE Administered Medications Discontinued Medications Tranexamic Acid (Tranexamic Acid / 0.7% Nacl) 1,000 mg in 100 mls @ 600 mls/hr IV NOW STA Stop: 10/29/24 20:34 Last Admin: 10/29/24 20:42 Dose: 600 mls/hr Documented By: BEN Lorazepam (Lorazepam 2 Mg/1 Ml Vial) 1 mg IV NOW STA Stop: 10/29/24 20:26 Last Admin: 10/29/24 20:42 Dose: 1 mg Documented By: BEN Morphine Sulfate (Morphine Sulfate 4 Mg/Ml 1 Ml Carp\Vial) 4 mg IV NOW STA Stop: 10/29/24 20:28 Last Admin: 10/29/24 20:42 Dose: 4 mg Documented By: BEN Ondansetron HCl (Ondansetron Inj 2 Mg/Ml 2 Ml Vial) 4 mg IV NOW STA Stop: 10/29/24 20:28 Last Admin: 10/29/24 20:42 Dose: 4 mg Documented By: BEN Silver Nitrate/Potassium Nitrate (Silver Nitr/Potassium Nitrate Applicator) Confirm Administered Dose 10 appl .ROUTE .STK-MED ONE Stop: 10/29/24 21:07 Last Admin: 10/29/24 21:49 Dose: 10 appl Documented By: MELECIO Tranexamic Acid (Txa 10% Non-Iv Routes 100 Mg/Ml Vial) 1,000 mg TOP ONE ONE Stop: 10/29/24 20:38 Last Admin: 10/29/24 21:47 Dose: 1,000 mg Documented By: MELECIO Discharge Plan Visit Data Chief Complaint: Vaginal Bleeding Stated Complaint: VAGINAL BLEEDING ED Provider: Tran Castellon ED Midlevel Provider: Suleman Stevenson Discharge Problem: Postoperative hemorrhage of vagina following genitourinary procedure Patient Disposition: Admitted As Inpatient Condition: Fair Forms Stand Alone Forms: [facility] Prescriptions Prescriptions: No Action melatonin 10 mg tablet 10 mg PO HS valacyclovir 1 gram Tablet 2,000 mg PO AMHS MDD for 1 day PRN (Reason: Cold Sores) Rx Instructions: take for 1 day for cold sores tramadol 50 mg Tablet 50 mg PO Q8H PRN (Reason: Pain) ropinirole 0.5 mg tablet 1.5 mg PO HS Rx Instructions: 3 tablet dose lorazepam 0.5 mg tablet 0.5 - 1 mg PO UD PRN (Reason: before imaging) Referrals Referrals: Eusebio Portillo DO [Primary Care Provider] -
[2024-10-29] MEDS: ONDANSETRON INJ 2 MG/ML 2 ML VIAL IV STA (20:42)
[2024-10-29] MEDS: TRANEXAMIC ACID / 0.7% NACL 1,000 MG/100 ML BAG IV STA (20:42)
[2024-10-29] MEDS: MoRPHine SULFATE 4 MG/ML 1 ML CARP\\VIAL IV STA (20:42)
[2024-10-29] MEDS: TXA 10% Non-IV Routes 100 MG/ML VIAL TOP ONE (21:47)
--- NOTE | 2024-10-29 21:47 | History & Physical Report ---
Date of Service October 29, 2024 Assessment & Plan (1) Postoperative hemorrhage of vagina following genitourinary procedure: Plan: Please see ER consult note for procedures in ER - admit to [facility] [facility] service for further eval overnight after packing vagina and placement of steward. Patient agreeable with plan. Will recheck CBC tonight and again in the morning. History of Present Illness Chief Complaint: vaginal bleeding Primary Care Provider: Eusebio Portillo DO 64yo presented to ER with significant vaginal bleeding. Underwent LEEP procedure earlier today, no active bleeding at completion of procedure, then later this evening started to bleed while sitting on the couch at home. Presented to ER via ambulance. Allergies Allergy/AdvReac Type Severity Reaction Status Date / Time Sulfa (Sulfonamide Allergy Mild Nausea Verified 10/29/24 10:01 Antibiotics) ciprofloxacin [From Cipro] Allergy Verified 10/29/24 10:01 Iodinated Contrast Media Allergy Verified 10/29/24 10:01 metronidazole [From Flagyl] Allergy Verified 10/29/24 10:01 NSAIDS (Non-Steroidal Allergy Verified 10/29/24 10:01 Anti-Inflamma levofloxacin AdvReac Severe AGGITATION/NUMB Verified 10/29/24 10:01 FEET & HANDS,TACHYCARDIA Home Medications Medication Instructions Recorded Confirmed Type valacyclovir 1 gram tablet 2,000 mg PO AMHS PRN Cold Sores 06/04/18 10/29/24 History melatonin 10 mg tablet 10 mg PO HS 05/16/24 10/29/24 History lorazepam 0.5 mg tablet 0.5 - 1 mg PO UD PRN before imaging 10/29/24 10/29/24 History ropinirole 0.5 mg tablet 1.5 mg PO HS 10/29/24 10/29/24 History tramadol 50 mg tablet 50 mg PO Q8H PRN Pain 10/29/24 10/29/24 History Patient History Medical History (Updated 10/29/24 @ 21:30 by Suleman Stevenson) Family history of melanoma Chronic pain of left heel Fibromyalgia History of Lyme disease Anxiety Surgical History (Updated 04/05/21 @ 14:27 by Heather Chahal) History of hand surgery Left thumb for osteoarthritis History of laparotomy tubal History of root canal procedure History of colonoscopy History of esophagogastroduodenoscopy (EGD) History of wisdom tooth extraction Family History (System 09/05/19 @ 15:51 by Aydee Li) Mother Bladder cancer Lung disease Melanoma Father Asthma Stroke Other No family history of adverse response to anesthesia Denies family history of Ovarian cancer Prostate cancer Myocardial infarction Breast cancer Colorectal cancer Social History (Updated 12/25/20 @ 16:07 by Genesis Mahmood LPN) Smoking Status: Never smoker Second Hand Exposure: Yes (father smoked); Do You Dip or Chew Tobacco: No; Hx Alcohol Use: Yes Alcohol type: beer and wine Hx Substance Use: No Preferred Language: British Communication Ability: Effective Hazmat Technician Required: No Beliefs That Will Affect Care: None Current Living Situation: Alone Feels Safe at Home: Yes Assistive Devices: Glasses Physical Exam Physical Exam: AAOx3 NAD RRR no tachycardia No respiratory distress Abdomen soft Vaginal exam - significant blood clots/bleeding in ER - please see ER consult note Results & Data Vital Signs (Past 12 Hours) Vital Signs Pulse Pulse Resp BP BP Pulse Ox O2 Del Method 10/29/24 21:07 69 18 112/65 98 Room Air 10/29/24 19:25 82 10/29/24 19:07 79 22 149/75 H 98 Room Air 10/29/24 19:07 78 14 149/75 H 98 Room Air Coding Level of Care Code 18098 INT INP/OBS CARE 40MIN Diagnoses Postoperative hemorrhage of vagina following genitourinary procedure N99.820
[2024-10-29] MEDS: SILVER NITR/POTASSIUM NITRATE APPLICATOR ONE (21:49)
[2024-10-29] MEDS: MELATONIN 3 MG TAB PO PRN (23:21)
[2024-10-29 23:23] LABS: Hematocrit (blood only) 37.1 % (37.0-47.0); Hemoglobin 12.0 g/dl (12.0-16.0); Immature Granulocytes # (auto) 0.03 K/uL (0.01-0.20); Immature Granulocytes % (auto) 0.3 %; Mean Corpuscular Hemoglobin 30.2 pg (25.0-34.0); Mean Corpuscular Volume 93.2 fL (80.0-100.0); Platelet Count 301 K/uL (130-400); RDW Standard Deviation 47.8 fL (36.4-46.3); Red Blood Count 3.98 M/uL (4.20-5.40); White Blood Count 11.64 K/ul (4.8-10.8)
--- NOTE | 2024-10-30 00:28 | Gynecologic Progress Note ---
Date of Service October 30, 2024 Assessment & Plan Admission and Anticipated Discharge Date Admission Date: October 29, 2024 Subjective Patient sleeping in room. Briefly awoken for eval. No active bleeding from vagina. No blood on underpad or on packing. Vitals stable. Hemoglobin in ER was 12.6, upon admission to the floor was 12.0. Will continue to monitor overnight. Results & Data Vital Signs (Past 12 Hours) Vital Signs Temp Pulse Pulse Pulse Resp BP BP 10/29/24 22:55 36.8 C 65 14 113/58 L 10/29/24 22:24 65 16 10/29/24 21:07 69 18 10/29/24 19:25 82 10/29/24 19:07 79 22 10/29/24 19:07 78 14 149/75 H BP Pulse Ox O2 Del Method 10/29/24 22:55 95 Room Air 10/29/24 22:24 102/65 98 10/29/24 21:07 112/65 98 Room Air 10/29/24 19:25 10/29/24 19:07 149/75 H 98 Room Air 10/29/24 19:07 98 Room Air
--- NOTE | 2024-10-30 03:20 | Gynecologic Progress Note ---
Date of Service October 30, 2024 Assessment & Plan Admission and Anticipated Discharge Date Admission Date: October 29, 2024 Subjective Called to patient room - BP 70s/40s. Pulse 50s. O2 97 on room air. Pt awake in bed, talking, states she initially felt nausea, but better now. Urine output 175 in steward, no blood under patient and no blood on packing. Abdomen soft. Will give stat IV fluids bolus and recheck H/H to be sure not missing occult bleeding. Results & Data Vital Signs (Past 12 Hours) Vital Signs Temp Pulse Pulse Pulse Resp BP BP 10/29/24 22:55 36.8 C 65 14 113/58 L 10/29/24 22:24 65 16 10/29/24 21:07 69 18 10/29/24 19:25 82 10/29/24 19:07 79 22 10/29/24 19:07 78 14 149/75 H BP Pulse Ox O2 Del Method 10/29/24 22:55 95 Room Air 10/29/24 22:24 102/65 98 10/29/24 21:07 112/65 98 Room Air 10/29/24 19:25 10/29/24 19:07 149/75 H 98 Room Air 10/29/24 19:07 98 Room Air
[2024-10-30 03:55] LABS: Hematocrit (blood only) 29.9 % (37.0-47.0); Hemoglobin 9.6 g/dl (12.0-16.0)
[2024-10-30 03:57] LABS: Hematocrit (blood only) 29.7 % (37.0-47.0); Hemoglobin 9.7 g/dl (12.0-16.0); Immature Granulocytes # (auto) 0.03 K/uL (0.01-0.20); Immature Granulocytes % (auto) 0.3 %; Mean Corpuscular Hemoglobin 30.5 pg (25.0-34.0); Mean Corpuscular Volume 93.4 fL (80.0-100.0); Platelet Count 245 K/uL (130-400); RDW Standard Deviation 48.3 fL (36.4-46.3); Red Blood Count 3.18 M/uL (4.20-5.40); White Blood Count 9.38 K/ul (4.8-10.8)
[2024-10-30] MEDS: SODIUM CHLORIDE 0.9% 1,000 ML IV SCH (04:20)
--- NOTE | 2024-10-30 05:02 | Communication Note ---
Date of Service: October 30, 2024 Responded to code kurt overnight, called due to persistent hypotension. Patient was admitted d/t vaginal bleeding that started several hours after a LEEP earlier in the day. On arrival to ED, Hgb 12. Stat H&H ~0330 with Hgb 9.6. On review of recorded vitals, BP was as low as 60/33. At time code was called, BP was 80s/40s. By this point, patient had received 500cc bolus NS. Patient assessed at bedside - denied chest pain, shortness of breath, lightheadedness. Nausea from earlier had resolved. Patient not on a blood thinner. Second IV access site established. Patient was given 1L bolus NS with transient improvement. BP maxed out at 97 systolic, then started to decrease again after bolus finished running. Patient discussed with OB attending, who had low suspicion for ongoing bleeding upon reexamination. Additional 500cc bolus started (for total 2L) + 25g albumin. Urine output from 3-6AM averaged out to 0.5ml/kg/h, suspect patient remains volume contracted. Volume depletion would also explain admission Cr of 1.6. Repeat CBC and BMP pending. Also ordered random cortisol. EKG obtained due to bradycardia - NSR rate 61, intervals WNL. Unclear why HR remained in the 50s throughout this period of time. Patient received a dose of morphine and Ativan in the ED, but seems unlikely that this would be a significant factor 6-8 hours later. Hospitalist consult placed to assist with management of this patient.
[2024-10-30] MEDS: ALBUMIN 25% 25 GM/100 ML VIAL IV ONE (05:28)
[2024-10-30] MEDS: SODIUM CHLORIDE 0.9% 500 ML IV ONE (05:40)
[2024-10-30] MEDS: SODIUM CHLORIDE 0.9% 500 ML IV SCH (06:19)
[2024-10-30 06:27] LABS: Hematocrit (blood only) 29.0 % (37.0-47.0); Hemoglobin 9.7 g/dl (12.0-16.0); Mean Corpuscular Hemoglobin 31.5 pg (25.0-34.0); Mean Corpuscular Volume 94.2 fL (80.0-100.0); Platelet Count 225 K/uL (130-400); RDW Standard Deviation 49.1 fL (36.4-46.3); Red Blood Count 3.08 M/uL (4.20-5.40); White Blood Count 12.20 K/ul (4.8-10.8)
[2024-10-30 06:43] LABS: Anion Gap 4.0 (3-11); Blood Urea Nitrogen 15.0 mg/dl (6-23); Calcium 8.0 mg/dl (8.6-10.3); Carbon Dioxide 26.0 mmol/L (21-32); Chloride 110.0 mmol/L (98-107); Creatinine Clr Calc Pharmacy 59.3 ml/min; Glucose 104.0 mg/dl (70-99(Fasting)); Potassium 3.6 mmol/L (3.5-5.1); Sodium 140.0 mmol/L (136-145)
--- NOTE | 2024-10-30 07:53 | Gynecologic Progress Note ---
Date of Service October 30, 2024 Assessment & Plan Admission and Anticipated Discharge Date Admission Date: October 29, 2024 Subjective Patient awake, talking. Vaginal packing removed, scant bloody discharge - no bright red blood, no clots. Steward with adequate output. Recheck of bleeding 10-15 min after removal showed no bleeding. Will plan to keep steward in for another 2-3 hours to ensure no further bleeding, then ok to remove. Hgb has been stable between 3a and 6a - suspect the drop from 12 (on arrival to 4th floor) to 9.7 reflects the blood loss in the ER, prior to packing the vagina. My estimation is that she had approximately 500cc EBL in the ER - of clots, active bleeding. Appreciate Hospitalist team's eval of low pulse and BP. Results & Data Vital Signs (Past 12 Hours) Vital Signs Temp Pulse Pulse Resp BP BP Pulse Ox 10/30/24 06:30 62 87/45 L 10/30/24 06:15 60 86/45 L 10/30/24 06:00 66 93/52 L 10/30/24 05:45 69 90/47 L 10/30/24 05:41 61 91/51 L 10/30/24 05:30 59 L 83/47 L 10/30/24 05:15 58 L 88/50 L 10/30/24 05:00 59 L 83/44 L 10/30/24 04:51 60 86/53 L 10/30/24 04:45 60 83/46 L 10/30/24 04:30 59 L 83/46 L 10/30/24 04:24 64 H 90/54 L 10/30/24 04:18 66 94/48 L 10/30/24 04:15 68 97/64 L 10/30/24 03:57 50 L 83/42 L 10/30/24 03:43 53 L 92/41 L 10/30/24 03:33 51 L 89/50 L 10/30/24 03:30 53 L 82/51 L 10/30/24 03:27 51 L 86/45 L 10/30/24 03:22 51 L 87/42 L 10/30/24 03:15 52 L 77/44 L 10/30/24 03:12 76/43 L 10/30/24 03:09 50 L 72/40 L 10/30/24 03:05 36.4 C L 52 L 12 60/33 L 94 10/29/24 22:55 36.8 C 65 14 113/58 L 95 10/29/24 22:24 65 16 102/65 98 10/29/24 21:07 69 18 112/65 98 O2 Del Method 10/30/24 06:30 10/30/24 06:15 10/30/24 06:00 10/30/24 05:45 10/30/24 05:41 10/30/24 05:30 10/30/24 05:15 10/30/24 05:00 10/30/24 04:51 10/30/24 04:45 10/30/24 04:30 10/30/24 04:24 10/30/24 04:18 10/30/24 04:15 10/30/24 03:57 10/30/24 03:43 10/30/24 03:33 10/30/24 03:30 10/30/24 03:27 10/30/24 03:22 10/30/24 03:15 10/30/24 03:12 10/30/24 03:09 10/30/24 03:05 Room Air 10/29/24 22:55 Room Air 10/29/24 22:24 10/29/24 21:07 Room Air
--- NOTE | 2024-10-30 11:00 | Electrocardiogram Report ---
Test Reason : Blood Pressure : */* mmHG Vent. Rate : 61 BPM Atrial Rate : 61 BPM P-R Int : 130 ms QRS Dur : 78 ms QT Int : 446 ms P-R-T Axes : 84 91 85 degrees QTcB Int : 448 ms Normal sinus rhythm Rightward axis Nonspecific ST abnormality Abnormal ECG When compared with ECG of 31-May-2018 15:50, T wave amplitude has decreased in Anterior leads Confirmed by Darshan Pathak ([id number]) on 10/30/2024 11:00:23 AM Referred By: REFERRED SELF Confirmed By: Darshan Pathak
--- NOTE | 2024-10-30 11:54 | Hospitalist Consultation ---
Date of Consultation October 30, 2024 Assessment & Plan (1) Vaginal bleeding: Plan Patient is 64 Y O Female who came in with vaginal bleeding several hours after LEEP procedure. Hospitalist service was consulted for acute drop in blood pressure. Acute Hypotension -overnight BP drop to 76/43 -BP improved to 105/50 following NS bolus -S/P 2l NS bolus -Vaginal bleeding is controlled -Hgb: 9.6>9.7>9.6 -Patient reports feeling tired. Otherwise denies dizziness, shortness of breath, feeling of passing out. -WBC elevated to 12.20 . Likely stress reaction -Septic work up negative. CRP, PRocal WNL -Random Cortisol WNL -Continue to monitor today Supervising Physician Co-Signing Physician Notes Thank you for allowing me to participate in the care of your patient. I personally examined the patient and verified johnson points of history and exam, discussed case, and agree with decision making and plan documented by Dr. Fabian. Patient is a 64-year-old female presenting with postoperative hemorrhage following LEEP procedure. Results of trending hemoglobin dropped to 9.7. At this time, bleeding has been controlled. Blood pressure soft but improving. Patient asymptomatic. Agree with monitoring overnight and rechecking blood count in am. History of Present Illness Reason for Consultation: Low BP, Attending Physician: Mai Orr, History of Present Illness 64yo presented to ER with significant vaginal bleeding. Underwent LEEP procedure earlier yesterday, no active bleeding at completion of procedure, then later yesterday evening started to bleed while sitting on the couch at home. P resented to ER via ambulance C[facility] purple was called overnight, due to persistent hypotension. . On arrival to ED, Hgb 12. Stat H&H ~0330 with Hgb 9.6. On review of recorded vitals, BP was as low as 60/33. At time code was called, BP was 80s/40s. By this point, patient had received 500cc bolus NS. Patient assessed at bedside - denied chest pain, shortness of breath, lightheadedness. Nausea from earlier had resolved. Patient not on a blood thinner. Second IV access site established. Patient was given 1L bolus NS with transient improvement. Allergies Allergy/AdvReac Type Severity Reaction Status Date / Time Sulfa (Sulfonamide Allergy Mild Nausea Verified 10/29/24 10:01 Antibiotics) ciprofloxacin [From Cipro] Allergy Verified 10/29/24 10:01 Iodinated Contrast Media Allergy Verified 10/29/24 10:01 metronidazole [From Flagyl] Allergy Verified 10/29/24 10:01 NSAIDS (Non-Steroidal Allergy Verified 10/29/24 10:01 Anti-Inflamma levofloxacin AdvReac Severe AGGITATION/NUMB Verified 10/29/24 10:01 FEET & HANDS,TACHYCARDIA Home Medications Medication Instructions Recorded Confirmed Type valacyclovir 1 gram tablet 2,000 mg PO AMHS PRN Cold Sores 06/04/18 10/29/24 History melatonin 10 mg tablet 10 mg PO HS 05/16/24 10/29/24 History lorazepam 0.5 mg tablet 0.5 - 1 mg PO UD PRN before imaging 10/29/24 10/29/24 History ropinirole 0.5 mg tablet 1.5 mg PO HS 10/29/24 10/29/24 History tramadol 50 mg tablet 50 mg PO Q8H PRN Pain 10/29/24 10/29/24 History Patient History Medical History Osteoporosis Family history of melanoma Chronic pain of left heel Fibromyalgia History of Lyme disease Anxiety Surgical History History of hand surgery Left thumb for osteoarthritis History of laparotomy tubal History of root canal procedure History of colonoscopy History of esophagogastroduodenoscopy (EGD) History of wisdom tooth extraction Family History (System 09/05/19 @ 15:51 by Aydee Li) Mother Bladder cancer Lung disease Melanoma Father Asthma Stroke Other No family history of adverse response to anesthesia Denies family history of Ovarian cancer Prostate cancer Myocardial infarction Breast cancer Colorectal cancer Social History Smoking Status: Never smoker Second Hand Exposure: No; Do You Dip or Chew Tobacco: No; Hx Alcohol Use: Yes Alcohol type: beer, wine and hard liquor Hx Substance Use: No Preferred Language: Armenian Communication Ability: Effective Drafter Detail Required: No Beliefs That Will Affect Care: None Current Living Situation: Alone Other Information That Helps Us Care for You: No Feels Safe at Home: Yes Safety Concerns: Feels Safe At This Time Assistive Devices: Glasses Review of Systems Review of Systems: As per HPI Physical Exam Physical Exam: Constitutional: Well appearing, No acute distress, PILCCOD: Negative HEENT: Atraumatic, Normocephalic, No conjunctival injection CVS: S1 S2 no murmur, Regular Rhythm, no LE edema Respiratory: BL equal air entry with NVBS. No rhonchi, wheezes, or crackles. No increased work of breathing GI: Soft, Nondistended, Nontender, Normal Bowel sounds + MSK: No gross deformities noted Skin: Warm, Dry, No rashes Neuro: Alert, Oriented to TPP, No Focal deficit Psych: Mood and Affect congruent, Cooperative on exam Results & Data Results & Data Vital Signs (Past 12 Hours) Vital Signs Temp Pulse Resp BP Pulse Ox O2 Del Method 10/30/24 09:48 60 98/43 L 10/30/24 09:00 64 94/56 L 100 Room Air 10/30/24 08:45 70 87/49 L 99 Room Air 10/30/24 08:30 62 83/43 L 10/30/24 08:00 62 91/51 L 10/30/24 07:30 36.8 C 65 18 92/52 L 100 Room Air 10/30/24 07:15 66 93/50 L 97 Room Air 10/30/24 06:30 62 87/45 L 10/30/24 06:15 60 86/45 L 10/30/24 06:00 66 93/52 L 10/30/24 05:45 69 90/47 L 10/30/24 05:41 61 91/51 L 10/30/24 05:30 59 L 83/47 L 10/30/24 05:15 58 L 88/50 L 10/30/24 05:00 59 L 83/44 L 10/30/24 04:51 60 86/53 L 10/30/24 04:45 60 83/46 L 10/30/24 04:30 59 L 83/46 L 10/30/24 04:24 64 H 90/54 L 10/30/24 04:18 66 94/48 L 10/30/24 04:15 68 97/64 L 10/30/24 03:57 50 L 83/42 L 10/30/24 03:43 53 L 92/41 L 10/30/24 03:33 51 L 89/50 L 10/30/24 03:30 53 L 82/51 L 10/30/24 03:27 51 L 86/45 L 10/30/24 03:22 51 L 87/42 L 10/30/24 03:15 52 L 77/44 L 10/30/24 03:12 76/43 L 10/30/24 03:09 50 L 72/40 L 10/30/24 03:05 36.4 C L 52 L 12 60/33 L 94 Room Air
[2024-10-30] MEDS: ACETAMINOPHEN 325 MG TAB PO PRN (14:05)
[2024-10-31 05:00] VITALS: O2SAT 98
[2024-10-31 06:58] LABS: Hematocrit (blood only) 29.9 % (37.0-47.0); Hemoglobin 9.7 g/dl (12.0-16.0); Immature Granulocytes # (auto) 0.02 K/uL (0.01-0.20); Immature Granulocytes % (auto) 0.3 %; Mean Corpuscular Hemoglobin 30.5 pg (25.0-34.0); Mean Corpuscular Volume 94.0 fL (80.0-100.0); Platelet Count 222 K/uL (130-400); RDW Standard Deviation 49.2 fL (36.4-46.3); Red Blood Count 3.18 M/uL (4.20-5.40); White Blood Count 7.95 K/ul (4.8-10.8)
--- NOTE | 2024-10-31 07:48 | Gynecologic Progress Note ---
Date of Service October 31, 2024 Assessment & Plan (1) Postoperative hemorrhage of vagina following genitourinary procedure: Plan: plan discharge, has follow up with Dr. Castellon in office she states. no bleeding, will call if things change reviewed situation in depth Admission and Anticipated Discharge Date Admission Date: October 29, 2024 Subjective doing well. no bleeding no pain. desires to go home Physical Exam Constitutional: WD/WN, vitals as above well developed and well nourished Respiratory: normal respiratory effort, lungs clear to auscultation normal respiratory effort Cardiovascular: RRR, no murmur, no edema Gastrointestinal (Abdomen): normal bowel sounds, soft, nontender, no hepatosplenomegaly Results & Data Vital Signs (Past 12 Hours) Vital Signs Temp Pulse Resp BP Pulse Ox O2 Del Method 10/31/24 04:25 97.5 F L 62 14 91/44 L 98 Room Air 10/31/24 00:05 98.2 F 66 16 91/53 L 97 Room Air 10/30/24 20:47 98.6 F 68 16 106/64 97 Room Air PG Care Time/CCT Total # of Minutes Spent Total Time Spent with Patient: Total time spent is greater than 50% in coordination of care (as documented) at patient's floor/unit and/or counseling patient: Coding Level of Care Code 17204 SUB INP/OBS CARE 2/35MIN Diagnoses Postoperative hemorrhage of vagina following genitourinary procedure N99.820
--- NOTE | 2024-10-31 08:00 | Hospitalist Consultation ---
Date of Consultation October 31, 2024 Assessment & Plan (1) Vaginal bleeding: Plan Patient is 64 Y O Female who came in with vaginal bleeding several hours after LEEP procedure. Hospitalist service was consulted for acute drop in blood pressure. Acute Hypotension(Resolved) -Doing a lot better. -Denies dizziness, weakness or lethargy. -Vaginal Bleeding is controlled -BP is maintained in overnight in the range of 90-110/50s -Hgb back up to 12 -Patient is willing to go home. Will sign off today. Thank you for allowing us to participate in care of patient. Supervising Physician Co-Signing Physician Notes Thank you for allowing me to participate in the care of your patient. I personally examined the patient and verified johnson points of history and exam, discussed case, and agree with decision making and plan documented by Dr. Fabian. Hemoglobin on discharge 9.7. Advised continued monitoring for bleeding and iron rich foods. Patient will followup with gynecology and PCP. History of Present Illness Reason for Consultation: Acute Hypotension Attending Physician: Mai Orr, Allergies Allergy/AdvReac Type Severity Reaction Status Date / Time Sulfa (Sulfonamide Allergy Mild Nausea Verified 10/29/24 10:01 Antibiotics) ciprofloxacin [From Cipro] Allergy Verified 10/29/24 10:01 Iodinated Contrast Media Allergy Verified 10/29/24 10:01 metronidazole [From Flagyl] Allergy Verified 10/29/24 10:01 NSAIDS (Non-Steroidal Allergy Verified 10/29/24 10:01 Anti-Inflamma levofloxacin AdvReac Severe AGGITATION/NUMB Verified 10/29/24 10:01 FEET & HANDS,TACHYCARDIA Home Medications Medication Instructions Recorded Confirmed Type valacyclovir 1 gram tablet 2,000 mg PO AMHS PRN Cold Sores 06/04/18 10/29/24 History melatonin 10 mg tablet 10 mg PO HS 05/16/24 10/29/24 History lorazepam 0.5 mg tablet 0.5 - 1 mg PO UD PRN before imaging 10/29/24 10/29/24 History ropinirole 0.5 mg tablet 1.5 mg PO HS 10/29/24 10/29/24 History tramadol 50 mg tablet 50 mg PO Q8H PRN Pain 10/29/24 10/29/24 History Patient History Medical History Osteoporosis Family history of melanoma Chronic pain of left heel Fibromyalgia History of Lyme disease Anxiety Surgical History History of hand surgery Left thumb for osteoarthritis History of laparotomy tubal History of root canal procedure History of colonoscopy History of esophagogastroduodenoscopy (EGD) History of wisdom tooth extraction Family History (System 09/05/19 @ 15:51 by Aydee Li) Mother Bladder cancer Lung disease Melanoma Father Asthma Stroke Other No family history of adverse response to anesthesia Denies family history of Ovarian cancer Prostate cancer Myocardial infarction Breast cancer Colorectal cancer Social History Smoking Status: Never smoker Second Hand Exposure: No; Do You Dip or Chew Tobacco: No; Hx Alcohol Use: Yes Alcohol type: beer, wine and hard liquor Hx Substance Use: No Preferred Language: Prydeinig Communication Ability: Effective Plastic Tile Setter Required: No Beliefs That Will Affect Care: None Current Living Situation: Alone Feels Safe at Home: Yes Assistive Devices: Glasses Review of Systems Review of Systems: As per HPI Physical Exam Physical Exam: Constitutional: Well appearing, No acute distress, PILCCOD: Negative HEENT: Atraumatic, Normocephalic, No conjunctival injection CVS: S1 S2 no murmur, Regular Rhythm, no LE edema Respiratory: BL equal air entry with NVBS. No rhonchi, wheezes, or crackles. No increased work of breathing GI: Soft, Nondistended, Nontender, Normal Bowel sounds + MSK: No gross deformities noted Skin: Warm, Dry, No rashes Neuro: Alert, Oriented to TPP, No Focal deficit Psych: Mood and Affect congruent, Cooperative on exam Results & Data Results & Data Vital Signs (Past 12 Hours) Vital Signs Temp Pulse Resp BP Pulse Ox O2 Del Method 10/31/24 04:25 36.4 C L 62 14 91/44 L 98 Room Air 10/31/24 00:05 36.8 C 66 16 91/53 L 97 Room Air 10/30/24 20:47 37.0 C 68 16 106/64 97 Room Air Resident Activity Tracking Resident Involvement: Resident Care Provided Care Provided: Adult [facility] Medicine
[2024-10-31 09:28] VITALS: BP 110/68; PULSE 66; RESP 16; TEMP 98.2
[2024-10-31] MEDS: POLYETHYLENE (MIRALAX) 17 GM PACK PO PRN (09:37)
--- NOTE | 2024-11-01 18:35 | Discharge Summary ---
Date of Service November 01, 2024 Admission HPI Per Admitting Provider 64yo presented to ER with significant vaginal bleeding. Underwent LEEP procedure earlier today, no active bleeding at completion of procedure, then later this evening started to bleed while sitting on the couch at home. Presented to ER via ambulance. Discharge Data Consultations 10/29/24 21:29 ED Decision to Admit Stat 10/30/24 05:49 Consult Hospitalist Routine Hospital Course (1) Postoperative hemorrhage of vagina following genitourinary procedure: plan discharge, has follow up with Dr. Castellon in office she states. no bleeding, will call if things change reviewed situation in depth Coding Level of Care Code None Diagnoses Postoperative hemorrhage of vagina following genitourinary procedure N99.820
== END 2024-10-31 10:57 | disposition home or self-care (01) | DRG 921 ==
LOC: ED 19:13 → 4E1 21:36